=== PATIENT | male | born 1965 ===

== ENCOUNTER → 2019-01-09 | Outpatient (REF) ==
[2019-01-09 18:07] LABS: SOURCE, BODY FLUID LFT KNEE
[2019-01-09 18:08] LABS: SYNOVIAL FLUID COLOR PINK (YELLOW)
[2019-01-09 18:57] LABS: CRYSTALS, BODY FLUID NONE SEEN (NONE SEEN); SOURCE, BODY FLUID CRYSTALS LFT KNEE
== END ==
LOC: M LAB REF 15:52
PROVIDERS: ATTEND Physician Assistant Surgical
DX: Z11.9 Encounter for screening for infectious and parasitic diseases, unspecified (principal)